=== PATIENT | male | born 1955 | race Caucasian/White ===

== ENCOUNTER 2025-02-04 14:05 | Outpatient (CLI) | payer MEDICARE, SELFPAY ==
--- NOTE | ~2025-02-04 | US_ITS ---
EXAMINATION: US soft tissue chest, 02/04/2025 14:16 [facility] HISTORY: Sft mass of center chst Comparison: None Technique: Jose-scale and color Doppler images were obtained. Findings: Correlating with the palpable area there is no abnormal mass or mass effect. No increased flow. IMPRESSION: Unremarkable exam. If symptoms persist contrast-enhanced CT or MRI is recommended Reviewed, dictated and finalized at location P. [facility]
== END 2025-02-04 14:06 | disposition home or self-care (01) ==
LOC: MICIMG 14:12
PROVIDERS: Visit Provider Nurse Practitioner Family
DX: R22.2 Localized swelling, mass and lump, trunk (principal)
CPT/HCPCS: 76604